=== PATIENT | female | born 1960 | race Caucasian/White ===

== ENCOUNTER 2022-11-29 00:19 | Day surgery (SDC) | payer BC, SELFPAY ==
[2022-11-11 12:55] VITALS: BMI 31.9
[2022-11-29 07:08] VITALS: BP 120/81; PULSE 66; RESP 18; TEMP 36; O2SAT 99; BMI 31.4
[2022-11-29] MEDS: LACTATED RINGERS 1,000 ML 150 ML IV CONT (07:29)
--- NOTE | 2022-11-29 07:54 | WPDANESEPPF ---
Anes - Initial Pre Proc Eval Procedure: Operation Date: 11/29/22 08:45 Proposed Procedures p Screening Colonoscopy - Shmuel Anderson MD Date/Time: 11/29/22 07:54 Surgeon: Shmuel Anderson MD Pre Op Diagnosis: neoplasm screening Patient Data Age: 62 Gender: F Height: 1.6 m Weight: 80.5 kg Last Vital Signs Temp 96.8 F L 11/29/22 07:08 Pulse 66 11/29/22 07:08 Resp 18 11/29/22 07:08 BP 120/81 11/29/22 07:08 Pulse Ox 99 11/29/22 07:08 O2 Del Method Room Air 11/29/22 07:08 Allergies Allergy/AdvReac Type Severity Reaction Status Date / Time No Known Allergies Allergy Verified 11/29/22 07:13 Home Medications Medication Instructions Recorded Confirmed Type estradiol 0.01% (0.1 mg/gram) 1 g vaginal 3XW #42.5 grams 06/01/22 11/29/22 Rx vaginal cream montelukast 10 mg tablet 10 mg PO DAILY 11/11/22 11/29/22 History Patient hx anesthesia problems: post op nausea/vomiting Family hx anesthesia problems: none Results Review: All pre-operative results and documents have been reviewed as part of the pre-operative evaluation. [facility] Past Medical History Medical History (Updated 06/01/22 @ 14:23 by Saeid Shen MD) History of HPV infection Screening mammogram, encounter for Surgical History Surgical History Delivery by section H/O tubal ligation age 43 History of colposcopy (10/14/19) colposcopy Cx Bx LGSIL , ECC insufficient for diagnosis Family History Family History Other Breast cancer paternal aunt Social History Social History (Updated 06/01/22 @ 10:48 by LANDON Patel) Smoking status: Never smoker Alcohol intake: current Drinks per week: 10 Substance use: current Substance use type: marijuana Other substance usage details: rare marijuana use Living arrangements: with family Additional living arrangements comments: Gender identity (if verbalized by the patient): Female Sexual Orientation (if Verbalized by the Patient): Straight or Heterosexual Spiritual care concerns: No Anes - Eval Final PreProcedure Day of Procedure 11/29/22 07:54 Patient weight: obese Heart: regular rate and rhythm Lungs: clear to auscultation Airway: Mallampati scale class II Neurological: alert and oriented Last oral intake: >/= 8 hours ASA classification: II Emergent: no Anesthetic plan: proceed Anesthesia type and monitoring: general GIVS and standard monitoring Results Review: All pre-operative results and documents have been reviewed as part of the pre-operative evaluation. Informed Consent: The patient's anesthetic plan and its attendant risks and benefits were discussed with the patient/family/POA. Questions were solicited and answers provided to the satisfaction of the patient/family/POA.
--- NOTE | 2022-11-29 08:35 | PM.HPGS ---
History of Present Illness History of Present Illness Consent: Risks, benefits, and alternatives have been discussed and questions answered. Patient agrees to proceed with procedure. Chief complaint: neoplasm screening Narrative: Miley Hadley is a 62 year old female here for first screening colonoscopy Review of Systems Constitutional: Constitutional: Denies headache(s) and Denies weakness Eyes: Eyes: Denies blurry vision ENT: Reports Normal hearing present, Denies headache(s) and Denies neck pain Cardiovascular: Cardiovascular: Denies chest pain and Denies dyspnea Respiratory: Respiratory: Denies dyspnea Gastrointestinal: Gastrointestinal: Reports no additional gastrointestinal complaints Genitourinary: Genitourinary: Denies dysuria Musculoskeletal: Musculoskeletal: Denies neck pain Integumentary/Breasts: Skin/Breast: Denies dry skin Neurologic: Reports Normal hearing present, Denies headache(s) and Denies weakness Psychiatric: Psychiatric: Denies anxiety Endocrine: Endocrine: Denies change in body appearance Hematologic/Lymphatic: Hematologic/Lymphatic: Denies easy bleeding Allergic/Immunologic: Allergic/Immunologic: Denies urticaria PMF Past Medical History Medical History (Updated 11/29/22 @ 08:36 by Shmuel Anderson MD) Colon cancer screening History of HPV infection Screening mammogram, encounter for Surgical History Surgical History Delivery by section H/O tubal ligation age 43 History of colposcopy (10/14/19) colposcopy Cx Bx LGSIL , ECC insufficient for diagnosis Family History Family History Other Breast cancer paternal aunt Social History Social History (Updated 06/01/22 @ 10:48 by LANDON Paetl) Smoking status: Never smoker Alcohol intake: current Drinks per week: 10 Substance use: current Substance use type: marijuana Other substance usage details: rare marijuana use Living arrangements: with family Additional living arrangements comments: Gender identity (if verbalized by the patient): Female Sexual Orientation (if Verbalized by the Patient): Straight or Heterosexual Spiritual care concerns: No Meds Home Medications and Allergies Home Medications Medication Instructions Recorded Confirmed Type estradiol 0.01% (0.1 mg/gram) 1 g vaginal 3XW #42.5 grams 06/01/22 11/29/22 Rx vaginal cream montelukast 10 mg tablet 10 mg PO DAILY 11/11/22 11/29/22 History Allergies Allergy/AdvReac Type Severity Reaction Status Date / Time No Known Allergies Allergy Verified 11/29/22 07:13 Vital Signs Vital Signs - 24 hr 11/29/22 07:08 Temperature 96.8 F L Pulse Rate 66 Respiratory Rate 18 Blood Pressure 120/81 Pulse Oximetry 99 Oxygen Delivery Room Air Exam Const: General: comfortable and no acute distress HENMT: Face/Nose/Sinus: Normal nares present Eyes: General: appearance normal, both eyes and all related structures Neck: Neck: no JVD Resp: Auscultation: clear to auscultation bilaterally Cardio: Rate: regular rate Rhythm: regular rhythm GI: Inspection: non-distended GI Palp: Yes Soft to palpation Skin: General skin exam: normal color Neuro: General: gait normal Speech: normal speech Extrem: General: normal to inspection Psych: Mental Status: mental status grossly normal Assessment and Plan Assessment and plan (1) Colon cancer screening: Code(s): Z12.11 - Encounter for screening for malignant neoplasm of colon Status: Acute Assessment and Plan: colonoscopy
[2022-11-29 08:55] VITALS: BP 104/59; PULSE 71; RESP 20; O2SAT 93
[2022-11-29 09:05] VITALS: BP 115/68; PULSE 61; RESP 18; O2SAT 97
[2022-11-29 09:15] VITALS: BP 109/65; PULSE 63; RESP 20; O2SAT 98
== END 2022-11-29 09:28 | disposition home or self-care (01) ==
PROVIDERS: PCP Nurse Practitioner; Visit Provider Internal Medicine Gastroenterology
PROC: 0DJD8ZZ Inspection of Lower Intestinal Tract, Via Natural or Artificial Opening Endoscopic (ICD-10-PCS; CPT 45378; principal; 2022-11-29 08:45)
DX: Z12.11 Encounter for screening for malignant neoplasm of colon (principal); K64.8 Other hemorrhoids; F12.90 Cannabis use, unspecified, uncomplicated; E66.9 Obesity, unspecified; Z68.31 Body mass index [BMI] 31.0-31.9, adult
CPT/HCPCS: 45378; J2704; J7120

== ENCOUNTER 2023-03-15 00:32 | Day surgery (SDC) | payer BC, SELFPAY ==
[2023-03-07 12:43] VITALS: BMI 30.6
--- NOTE | 2023-03-14 13:51 | P.PNAN_ITS ---
Anes - Initial Pre Proc Eval Procedure: Operation Date: 03/15/23 12:30 Proposed Procedures p Esophagogastroduodenoscopy EGD - Shmuel Anderson MD Date/Time: 03/14/23 13:51 Surgeon: Shmuel Anderson MD Pre Op Diagnosis: nausea and epigastric pain Patient Data Age: 62 Gender: F Height: 1.63 m Weight: 80.9 kg Allergies Allergy/AdvReac Type Severity Reaction Status Date / Time No Known Allergies Allergy Verified 03/15/23 11:08 Home Medications Medication Instructions Recorded Confirmed Type estradiol 1 mg-progesterone 100 mg 1 cap PO QPM 02/28/23 03/15/23 History capsule ondansetron HCl 8 mg tablet 8 mg PO Q8H PRN nausea and 02/28/23 03/15/23 Rx vomiting #20 tabs Patient hx anesthesia problems: none Family hx anesthesia problems: none Results Review: All pre-operative results and documents have been reviewed as part of the pre- operative evaluation. 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 Nausea PONV (postoperative nausea and vomiting) Screening mammogram, encounter for Surgical History Surgical History (Updated 03/14/23 @ 13:51 by Brandon Villarreal DO) Delivery by section H/O tubal ligation age 43 History of appendectomy History of colposcopy (10/14/19) colposcopy Cx Bx LGSIL , ECC insufficient for diagnosis Family History Family History Other Breast cancer paternal aunt Social History Social History Smoking status: Never smoker Alcohol intake: current Drinks per week: 10 Substance use: former Substance use type: marijuana Other substance usage details: tried gummies Living arrangements: with family Additional living arrangements comments: Occupation/Education: retired Gender identity (if verbalized by the patient): Female Sexual Orientation (if Verbalized by the Patient): Straight or Heterosexual Spiritual care concerns: No Anes - Eval Final PreProcedure Day of Procedure 03/14/23 13:51 Patient weight: obese Heart: regular rate and rhythm Lungs: clear to auscultation Airway: Mallampati scale class II Neurological: alert and oriented Last oral intake: >/= 8 hours ASA classification: II Emergent: no Anesthetic plan: proceed Anesthesia type and monitoring: general GIVS and standard monitoring Results Review: All pre-operative results and documents have been reviewed as part of the pre- operative evaluation. Informed Consent: The patient's anesthetic plan and its attendant risks and benefits were discussed with the patient/family/POA. Questions were solicited and answers provided to the satisfaction of the patient/family/POA.
[2023-03-15 11:09] VITALS: BP 112/76; PULSE 63; RESP 16; TEMP 36.2; O2SAT 100; BMI 29.3
[2023-03-15] MEDS: LACTATED RINGERS 1,000 ML 150 ML IV CONT (11:17)
--- NOTE | 2023-03-15 11:32 | WPDHPUPDATE1 ---
History and Physical Update Update Date/Time: 03/15/23 11:32 History and Physical has been reviewed, including an updated exam of the patient. There are NO changes in the patient's condition. Risks, benefits, and alternatives have been discussed and questions answered. Patient agrees to proceed with procedure.
[2023-03-15 11:46] VITALS: BP 106/65; PULSE 74; RESP 22; O2SAT 97
[2023-03-15 11:56] VITALS: BP 109/68; PULSE 69; RESP 20; O2SAT 96
[2023-03-15 12:06] VITALS: BP 112/77; PULSE 56; RESP 16; O2SAT 100
== END 2023-03-15 12:11 | disposition home or self-care (01) ==
PROVIDERS: PCP Nurse Practitioner; Visit Provider Internal Medicine Gastroenterology
PROC: 0DJ08ZZ Inspection of Upper Intestinal Tract, Via Natural or Artificial Opening Endoscopic (ICD-10-PCS; CPT 43235; principal; 2023-03-15 12:30)
DX: R10.13 Epigastric pain (principal); E66.9 Obesity, unspecified; Z68.29 Body mass index [BMI] 29.0-29.9, adult
CPT/HCPCS: 43239; 88305; J2704; J7120